=== PATIENT | female | born 1995 ===

== ENCOUNTER 2019-12-06 22:57 | Inpatient (IN) | payer OTHER ==
[2019-12-06] MEDS ORDERED: Nalbuphine 10 MG/1 ML Vial IVPUSH PRN (23:23)
[2019-12-06] MEDS ORDERED: Carboprost Tromethamine 250 MCG/1 ML Amp IM PRN (23:23)
[2019-12-06] MEDS ORDERED: Sodium Chloride 0.9% 10 ML SDV IV PRN (23:23)
[2019-12-06] MEDS ORDERED: Tranexamic Acid 1,000 MG in Sodium Chloride 0.9% 100 ML IV PRN (23:23)
[2019-12-06] MEDS ORDERED: Butorphanol 1 MG/ML SDV IVPUSH PRN (23:23)
[2019-12-06] MEDS ORDERED: Methylergonovine 0.2 MG/1 ML Amp IM PRN (23:23)
[2019-12-06] MEDS ORDERED: Water For Irrigation,Sterile 1,000 ML Container IRR PRN (23:23)
[2019-12-06] MEDS ORDERED: Misoprostol 200 MCG Tab PO PRN (23:23)
[2019-12-06] MEDS ORDERED: Lidocaine 1% 50 ML MDV INJECT PRN (23:23)
[2019-12-06] MEDS ORDERED: Sodium Chloride 0.9% 10 ML Syringe FLUSH PRN (23:23)
[2019-12-06] MEDS ORDERED: Lactated Ringers 1,000 ML IV SCH (23:30)
[2019-12-06] MEDS ORDERED: Oxytocin/0.9 % Sodium Chloride 30 UNIT/500 ML BAG IV SCH (23:30)
[2019-12-07 08:33] LABS: BLOOD UREA NITROGEN,BUN 9 mg/dL (7.0-18.0); CARBON DIOXIDE,CO2 23.4 mmol/L (21.0-32.0); CHLORIDE,CL 103 mmol/L (98-107); GLUCOSE RANDOM 91 mg/dL (74-106); POTASSIUM,K 4.5 mmol/L (3.5-5.1); SODIUM,NA 138 mmol/L (136-145)
[2019-12-07] MEDS ORDERED: Terbutaline 1 MG/ML SDV SUBCUT PRN (11:44)
[2019-12-07] MEDS ORDERED: Oxytocin/0.9 % Sodium Chloride 30 UNIT/500 ML BAG IV SCH (11:45)
--- NOTE | 2019-12-07 12:13 | PCM.PREANE ---
Preanesthetic Assessment - Anesthesia/Transfusion/Family Hx Anesthesia History: No Prior Anesthesia Family History of Anesthesia Reaction: No Transfusion History: No Prior Transfusion(s) - Review of Systems General: No Symptoms Pulmonary: No Symptoms Cardiovascular: No Symptoms Gastrointestinal: No Symptoms Neurological: No Symptoms Other: Reports: None - Physical Assessment NPO Status Date: 12/07/19 NPO Status Time: 11:45 (water, juice) Height: 5 ft 6 in Weight: 108.862 kg ASA Class: 2 Mental Status: Alert & Oriented x3 Airway Class: Mallampati = 1 Dentition: Reports: Normal Dentition ROM/Head Extension: Full Lungs: Clear to Auscultation, Normal Respiratory Effort Cardiovascular: Regular Rate, Regular Rhythm - Lab Values: Laboratory Last Values WBC 12.48 K/uL (4.0-11.0) H 12/06/19 23:37 RBC 4.12 M/uL (4.30-5.90) L 12/06/19 23:37 Hgb 11.9 g/dL (12.0-16.0) L 12/06/19 23:37 Hct 36.2 % (36.0-46.0) 12/06/19 23:37 MCV 87.9 fL (80.0-98.0) 12/06/19 23:37 MCH 28.9 pg (27.0-32.0) 12/06/19 23:37 MCHC 32.9 g/dL (31.0-37.0) 12/06/19 23:37 RDW Std Deviation 45.8 fl (28.0-62.0) 12/06/19 23:37 RDW Coeff of Viet 14 % (11.0-15.0) 12/06/19 23:37 Plt Count 191 K/uL (150-400) 12/06/19 23:37 MPV 11.50 fL (7.40-12.00) 12/06/19 23:37 Nucleated RBC % 0.0 /100WBC 12/06/19 23:37 Nucleated RBCs # 0 K/uL 12/06/19 23:37 Sodium 138 mmol/L (136-145) 12/07/19 08:00 Potassium 4.5 mmol/L (3.5-5.1) 12/07/19 08:00 Chloride 103 mmol/L (98-107) 12/07/19 08:00 Carbon Dioxide 23.4 mmol/L (21.0-32.0) 12/07/19 08:00 BUN 9 mg/dL (7.0-18.0) 12/07/19 08:00 Creatinine 0.8 mg/dL (0.6-1.0) 12/07/19 08:00 Est Cr Clr Drug Dosing 99.76 mL/min 12/07/19 08:00 Estimated GFR (MDRD) > 60.0 ml/min 12/07/19 08:00 Glucose 91 mg/dL (74-106) 12/07/19 08:00 Uric Acid 5.2 mg/dL (2.6-7.2) 12/07/19 08:00 Calcium 8.9 mg/dL (8.5-10.1) 12/07/19 08:00 Total Bilirubin 0.6 mg/dL (0.2-1.0) 12/07/19 08:00 AST 20 IU/L (15-37) 12/07/19 08:00 ALT 19 IU/L (14-63) 12/07/19 08:00 Alkaline Phosphatase 103 U/L (46-116) 12/07/19 08:00 Total Protein 7.0 g/dL (6.4-8.2) 12/07/19 08:00 Albumin 2.8 g/dL (3.4-5.0) L 12/07/19 08:00 Globulin 4.2 g/dL (2.6-4.0) H 12/07/19 08:00 Albumin/Globulin Ratio 0.7 (0.9-1.6) L 12/07/19 08:00 Blood Type AB POSITIVE 12/06/19 23:37 Antibody Screen NEGATIVE 12/06/19 23:37 - Allergies Allergies/Adverse Reactions: Allergies Allergy/AdvReac Type Severity Reaction Status Date / Time No Known Allergies Allergy Verified 08/28/19 16:16 - Acknowledgements Anesthesia Type Planned: Epidural Pt an Appropriate Candidate for the Planned Anesthesia: Yes Alternatives and Risks of Anesthesia Discussed w Pt/Guardian: Yes Pt/Guardian Understands and Agrees with Anesthesia Plan: Yes PreAnesthesia Questionnaire - Past Health History Medical/Surgical History: Denies Medical/Surgical History HEENT History: Reports: Other (See Below) Other HEENT History: wear glasses Genitourinary History: Reports: UTI, Recurrent 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: - Past Surgical History HEENT Surgical History: Reports: None Female Surgical History: Reports: None - SUBSTANCE USE Smoking Status *Q: Never Smoker Tobacco Use Within Last Twelve Months: No Second Hand Smoke Exposure: No Recreational Drug Use History: No - CURRENT (IN HOUSE) MEDS Current Meds: Current Medications Butorphanol Tartrate (Stadol) 1 mg IVPUSH ASDIRECTED PRN PRN Reason: Pain Carboprost Tromethamine (Hemabate Ds) 250 mcg IM ASDIRECTED PRN PRN Reason: Post Hemorrhage Tranexamic Acid 1,000 mg/ (Sodium Chloride) 110 mls @ 660 mls/hr IV ONETIME PRN PRN Reason: Bleeding Lactated Ringer's (Ringers, Lactated) 1,000 mls @ 150 mls/hr IV ASDIRECTED FABRIZIO Oxytocin/Sodium Chloride (Oxytocin 30 Unit/500 Ml-Ns) 30 unit in 500 mls @ 999 mls/hr IV TITRATE FABRIZIO Oxytocin/Sodium Chloride (Oxytocin 30 Unit/500 Ml-Ns) 30 unit in 500 mls @ 2 mls/hr IV TITRATE FABRIZIO; Protocol Lidocaine HCl (Xylocaine 1%) 50 ml INJECT ONETIME PRN PRN Reason: Laceration repair Methylergonovine Maleate (Methergine) 0.2 mg IM ASDIRECTED PRN PRN Reason: Post Hemorrhage Misoprostol (Cytotec) 200 mcg PO ONETIME PRN PRN Reason: Post Hemorrhage Nalbuphine HCl (Nubain) 10 mg IVPUSH ASDIRECTED PRN PRN Reason: Pain (severe 7-10) Sodium Chloride (Saline Flush) 10 ml FLUSH ASDIRECTED PRN PRN Reason: Keep Vein Open Sodium Chloride (Normal Saline) 10 ml IV ASDIRECTED PRN PRN Reason: IV Use Sterile Water (Sterile Water For Irrigation) 1,000 ml IRR ASDIRECTED PRN PRN Reason: delivery Terbutaline Sulfate (Brethine) 0.25 mg SUBCUT ASDIRECTED PRN PRN Reason: Tacysystole Discontinued Medications Fentanyl/Bupivacaine HCl (Rkntxmsw-Jloex-Ef 2 Mcg/Ml-0.125%) Confirm Administered Dose 100 mls @ as directed .ROUTE .STK-MED ONE Stop: 12/07/19 11:50
--- NOTE | 2019-12-07 13:40 | PCM.DEL ---
L & D Note - General Info Date of Service: 12/07/19 Mother's Due Date: 11/27/19 - Delivery Note Labor: Spontaneous, Augmented by ARM, Augmented by Oxytocin Delivery Outcome: Livebirth Delivery Method: Spontaneous Vaginal Delivery-Single Presentation: Left Occiput Anterior (ANNALEE) Nuchal Cord: None Prep: Other Anesthesia Type: Epidural Episiotomy Type: None Laceration: Vaginal Suture type: Vicryl Suture size: 3-0 Placenta: Intact, Spontaneous Cord: 3 Vessels Estimated Blood Loss: 300 Resuscitation Needed: Yes : Bulb Syringe Score 1 min: 8 Score 5 min: 9 Delivery Comments (Free Text/Narrative):: Liveborn female at 1316 - General Info Date of Service: 12/07/19 - Patient Data Weight - Most Recent: 108.862 kg Lab Results Last 24 Hours: Laboratory Results - last 24 hr 12/06/19 12/06/19 12/07/19 Range/Units 23:37 23:37 08:00 WBC 12.48 H (4.0-11.0) K/uL RBC 4.12 L (4.30-5.90) M/uL Hgb 11.9 L (12.0-16.0) g/dL Hct 36.2 (36.0-46.0) % MCV 87.9 (80.0-98.0) fL MCH 28.9 (27.0-32.0) pg MCHC 32.9 (31.0-37.0) g/dL RDW Std Deviation 45.8 (28.0-62.0) fl RDW Coeff of Viet 14 (11.0-15.0) % Plt Count 191 (150-400) K/uL MPV 11.50 (7.40-12.00) fL Nucleated RBC % 0.0 /100WBC Nucleated RBCs # 0 K/uL Sodium 138 (136-145) mmol/L Potassium 4.5 (3.5-5.1) mmol/L Chloride 103 (98-107) mmol/L Carbon Dioxide 23.4 (21.0-32.0) mmol/L BUN 9 (7.0-18.0) mg/dL Creatinine 0.8 (0.6-1.0) mg/dL Est Cr Clr Drug Dosing 99.76 mL/min Estimated GFR (MDRD) > 60.0 ml/min Glucose 91 (74-106) mg/dL Uric Acid 5.2 (2.6-7.2) mg/dL Calcium 8.9 (8.5-10.1) mg/dL Total Bilirubin 0.6 (0.2-1.0) mg/dL AST 20 (15-37) IU/L ALT 19 (14-63) IU/L Alkaline Phosphatase 103 (46-116) U/L Total Protein 7.0 (6.4-8.2) g/dL Albumin 2.8 L (3.4-5.0) g/dL Globulin 4.2 H (2.6-4.0) g/dL Albumin/Globulin Ratio 0.7 L (0.9-1.6) Blood Type AB POSITIVE Antibody Screen NEGATIVE Med Orders - Current: Current Medications Butorphanol Tartrate (Stadol) 1 mg IVPUSH ASDIRECTED PRN PRN Reason: Pain Carboprost Tromethamine (Hemabate Ds) 250 mcg IM ASDIRECTED PRN PRN Reason: Post Hemorrhage Tranexamic Acid 1,000 mg/ (Sodium Chloride) 110 mls @ 660 mls/hr IV ONETIME PRN PRN Reason: Bleeding Lactated Ringer's (Ringers, Lactated) 1,000 mls @ 150 mls/hr IV ASDIRECTED FABRIZIO Oxytocin/Sodium Chloride (Oxytocin 30 Unit/500 Ml-Ns) 30 unit in 500 mls @ 999 mls/hr IV TITRATE FABRIZIO Oxytocin/Sodium Chloride (Oxytocin 30 Unit/500 Ml-Ns) 30 unit in 500 mls @ 2 mls/hr IV TITRATE FABRIZIO; Protocol Last Titration: 12/07/19 12:45 Dose: 6 munits/min, 6 mls/hr Lidocaine HCl (Xylocaine 1%) 50 ml INJECT ONETIME PRN PRN Reason: Laceration repair Methylergonovine Maleate (Methergine) 0.2 mg IM ASDIRECTED PRN PRN Reason: Post Hemorrhage Misoprostol (Cytotec) 200 mcg PO ONETIME PRN PRN Reason: Post Hemorrhage Nalbuphine HCl (Nubain) 10 mg IVPUSH ASDIRECTED PRN PRN Reason: Pain (severe 7-10) Sodium Chloride (Saline Flush) 10 ml FLUSH ASDIRECTED PRN PRN Reason: Keep Vein Open Sodium Chloride (Normal Saline) 10 ml IV ASDIRECTED PRN PRN Reason: IV Use Sterile Water (Sterile Water For Irrigation) 1,000 ml IRR ASDIRECTED PRN PRN Reason: delivery Terbutaline Sulfate (Brethine) 0.25 mg SUBCUT ASDIRECTED PRN PRN Reason: Tacysystole Discontinued Medications Fentanyl/Bupivacaine HCl (Bsilaqqk-Olfyf-Na 2 Mcg/Ml-0.125%) Confirm Administered Dose 100 mls @ as directed .ROUTE .STK-MED ONE Stop: 12/07/19 11:50 - Problem List & Annotations (1) Vaginal delivery SNOMED Code(s): 578791167 Code(s): O80 - ENCOUNTER FOR FULL-TERM UNCOMPLICATED DELIVERY Status: Acute Current Visit: Yes - Problem List Review Problem List Initiated/Reviewed/Updated: Yes - My Orders Last 24 Hours: My Active Orders 12/07/19 11:44 Bedrest Bathroom Privileges [RC] ASDIRECTED Communication Order [RC] ASDIRECTED Communication Order [RC] ASDIRECTED Notify Provider [RC] PRN Notify Provider [RC] STAT Oxygen Therapy [RC] ASDIRECTED Vaginal Exam [RC] PRN Vital Signs [RC] PER UNIT ROUTINE Terbutaline [Brethine] 0.25 mg SUBCUT ASDIRECTED PRN 12/07/19 11:45 Oxytocin/0.9 % Sodium Chloride [Oxytocin 30 Unit/500 ML-NS] 30 unit in 500 ml IV TITRATE Medication Administration Instruction [OM.PC] Q3H
[2019-12-07] MEDS ORDERED: Witch Hazel Medicated Pads 40/Jar TOP PRN (13:41)
[2019-12-07] MEDS ORDERED: Ibuprofen 400 MG Tab PO PRN (13:41)
[2019-12-07] MEDS ORDERED: Acetaminophen 500 MG Tab PO PRN (13:41)
[2019-12-07] MEDS ORDERED: Lanolin 100% Cream 7 GM Tube TOP PRN (13:41)
[2019-12-07] MEDS ORDERED: oxyCODONE 5 MG Tab PO PRN (13:41)
[2019-12-07] MEDS ORDERED: Bisacodyl 10 MG Supp RECTAL PRN (13:41)
[2019-12-07] MEDS ORDERED: Methylergonovine 0.2 MG/1 ML Amp IM PRN (13:41)
[2019-12-07] MEDS ORDERED: Tranexamic Acid 1,000 MG in Sodium Chloride 0.9% 100 ML IV PRN (13:41)
[2019-12-07] MEDS ORDERED: Misoprostol 200 MCG Tab RECTAL PRN (13:41)
[2019-12-07] MEDS ORDERED: Benzocaine/Menthol 20%-0.5% Spray 78 GM Cannister TOP PRN (13:41)
--- NOTE | 2019-12-07 15:45 | PCM.POSTAN ---
POST ANESTHESIA ASSESSMENT - MENTAL STATUS Mental Status: Alert, Oriented - RESPIRATORY Respiratory Status: Respiratory Rate WNL, Airway Patent, O2 Saturation Stable - CARDIOVASCULAR CV Status: Pulse Rate WNL, Blood Pressure Stable - GASTROINTESTINAL GI Status: No Symptoms - PAIN Pain Score: 0 - POST OP HYDRATION Hydration Status: Adequate & Stable
[2019-12-07] MEDS: Ibuprofen 800 MG Tab PO PRN (16:43)
[2019-12-07] MEDS: Docusate Sodium 100 MG Cap PO PRN (16:44)
--- NOTE | 2019-12-07 16:52 | OR ---
SURGEON: Jessica Whyte M.D. DATE OF PROCEDURE: 12/07/2019 PREOPERATIVE DIAGNOSES: A 37-2/7 weeks' intrauterine , active spontaneous labor, group B strep negative. POSTOPERATIVE DIAGNOSES: A 37-2/7 weeks' intrauterine , active spontaneous labor, group B strep negative. PROCEDURES: Pitocin augmentation of labor, artificial rupture of membranes, term spontaneous vaginal delivery, repair of vaginal laceration. PRIMARY SURGEON: Jessica Whyte MD. ANESTHESIA: Epidural. ESTIMATED BLOOD LOSS: Less than 300 mL. FINDINGS: Liveborn female. score of 8 and 9. Weight is pending. Placenta spontaneous, Schultze intact, with 3 vessels. Very small vaginal laceration with suture placed for hemostasis. COMPLICATIONS: None known. DISPOSITION: Stable in recovery. BRIEF HISTORY: This is a 24-year-old female. She is G2, P 1-0-0-1. She presents at 37-1/7 weeks' gestation in active spontaneous labor, progressing from 4 to 6 cm over observation time, this was in the evening. By morning, she was still 6 cm. Artificial rupture of membranes was performed with clear fluid noted. Two hours later, she was unchanged, and she was trying to labor without epidural. Therefore, we did give her another 2 hours for cervical change. However, this did not occur. Therefore, Pitocin was initiated. Soon thereafter, she requested an epidural, which provided excellent pain control, and within 2 hours, she was complete. DESCRIPTION OF PROCEDURE: With the patient in dorsal lithotomy position, the patient pushed twice to a 5+ station at which time the head was delivered spontaneously and atraumatically over the perineum with support with subsequent delivery of the infant's shoulders and body without any difficulty. The was bulb suctioned by nose and mouth and the cord was clamped x2 and cut after it had ceased to pulsate. The infant was handed to the mother in the presence of nurse attending delivery. The infant was a liveborn female. score of 8 and 9. Weight is pending at the time of dictation. Cord blood was collected for cord ABGs as well as routine cord blood sampling. Pitocin was initiated after delivery of the to assist with delivery of the placenta, which was delivered spontaneously, Schultze intact, with 3 vessels. Upon inspection of the pelvis and perineum, there were no periurethral, cervical, rectal, or perineal lacerations. There was a small vaginal laceration at 6 o'clock, which was repaired with a single [id number] suture of 3-0 Polysorb. Final sponge, needle, and instrument counts were correct. There were no known complications. Mother and baby are in LDR in good condition. JANIA / DEBBIE /[id number]
[2019-12-07] MEDS: Acetaminophen 500 MG Tab PO PRN (19:52)
[2019-12-08] MEDS: Acetaminophen 500 MG Tab PO PRN (04:04)
--- NOTE | 2019-12-08 06:59 | PCM48HPAN ---
Post Anesthesia Note - EVALUATION WITHIN 48HRS OF ANESTHETIC Vital Signs in Normal Range: Yes Patient Participated in Evaluation: Yes Respiratory Function Stable: Yes Airway Patent: Yes Cardiovascular Function Stable: Yes Hydration Status Stable: Yes Pain Control Satisfactory: Yes Nausea and Vomiting Control Satisfactory: Yes Mental Status Recovered: Yes Vital Signs: Last Vital Signs Temp 36.5 C 12/08/19 04:10 Pulse 86 12/08/19 04:10 Resp 18 12/08/19 04:10 BP 136/74 12/08/19 05:20 Pulse Ox 97 12/08/19 04:10
[2019-12-08] MEDS: Ibuprofen 800 MG Tab PO PRN (09:09)
[2019-12-08] MEDS: Docusate Sodium 100 MG Cap PO PRN (09:09)
--- NOTE | 2019-12-08 12:35 | PCM.PNPP ---
- General Info Date of Service: 12/08/19 Functional Status: Reports: Pain Controlled, Tolerating Diet, Ambulating, Urinating - Review of Systems General: Reports: Fever, Weakness HEENT: Reports: No Symptoms Pulmonary: Reports: No Symptoms Cardiovascular: Reports: No Symptoms Gastrointestinal: Reports: No Symptoms Genitourinary: Reports: No Symptoms Musculoskeletal: Reports: No Symptoms Skin: Reports: No Symptoms Neurological: Reports: No Symptoms Psychiatric: Reports: No Symptoms - Patient Data Vital Signs - Most Recent: Last Vital Signs Temp 36.6 C 12/08/19 09:00 Pulse 84 12/08/19 09:00 Resp 16 12/08/19 09:00 BP 132/84 12/08/19 09:00 Pulse Ox 97 12/08/19 09:00 Weight - Most Recent: 108.862 kg Lab Results - Last 24 Hours: Laboratory Results - last 24 hr 12/07/19 12/08/19 Range/Units 13:16 05:30 Hgb 10.6 L (12.0-16.0) g/dL Hct 32.3 L (36.0-46.0) % Cord ABG pH 7.201 (7.18-7.38) Cord ABG Base Excess -6 (-10--2) Cord VBG pH 7.292 (7.25-7.45) Cord VBG Base Excess -5 (-10--2) Med Orders - Current: Current Medications Acetaminophen (Tylenol Extra Strength) 500 mg PO Q4H PRN PRN Reason: Pain Acetaminophen (Tylenol Extra Strength) 1,000 mg PO Q4H PRN PRN Reason: Pain Last Admin: 12/08/19 04:04 Dose: 1,000 mg Benzocaine/Menthol (Dermoplast Pain Relief 20%-0.5% [place]) 78 gm TOP ASDIRECTED PRN PRN Reason: Perineal Comfort Measure Last Admin: 12/07/19 16:42 Dose: 1 spray Bisacodyl (Dulcolax) 10 mg RECTAL ONETIME PRN PRN Reason: Constipation Docusate Sodium (Colace) 100 mg PO BID PRN PRN Reason: Constipation Last Admin: 12/08/19 09:09 Dose: 100 mg Emollient Ointment (Lansinoh Hpa) 0 gm TOP ASDIRECTED PRN PRN Reason: Sore Nipples Last Admin: 12/07/19 16:43 Dose: 1 applic Tranexamic Acid 1,000 mg/ (Sodium Chloride) 110 mls @ 660 mls/hr IV ONETIME PRN PRN Reason: Bleeding Ibuprofen (Motrin) 400 mg PO Q4H PRN PRN Reason: Pain Ibuprofen (Motrin) 800 mg PO Q6H PRN PRN Reason: Pain Last Admin: 12/08/19 09:09 Dose: 800 mg Methylergonovine Maleate (Methergine) 0.2 mg IM ONETIME PRN PRN Reason: Excessive Vaginal Bleeding Misoprostol (Cytotec) 1,000 mcg RECTAL ONETIME PRN PRN Reason: excessive vaginal bleeding Oxycodone HCl (Oxycodone) 5 mg PO Q2H PRN PRN Reason: Pain Witch Gunjan (Tucks) 1 pad TOP ASDIRECTED PRN PRN Reason: comfort care Last Admin: 12/07/19 16:42 Dose: 1 disk Discontinued Medications Butorphanol Tartrate (Stadol) 1 mg IVPUSH ASDIRECTED PRN PRN Reason: Pain Carboprost Tromethamine (Hemabate Ds) 250 mcg IM ASDIRECTED PRN PRN Reason: Post Hemorrhage Tranexamic Acid 1,000 mg/ (Sodium Chloride) 110 mls @ 660 mls/hr IV ONETIME PRN PRN Reason: Bleeding Lactated Ringer's (Ringers, Lactated) 1,000 mls @ 150 mls/hr IV ASDIRECTED FABRIZIO Oxytocin/Sodium Chloride (Oxytocin 30 Unit/500 Ml-Ns) 30 unit in 500 mls @ 999 mls/hr IV TITRATE FABRIZIO Oxytocin/Sodium Chloride (Oxytocin 30 Unit/500 Ml-Ns) 30 unit in 500 mls @ 2 mls/hr IV TITRATE FABRIZIO; Protocol Last Titration: 12/07/19 12:45 Dose: 6 munits/min, 6 mls/hr Fentanyl/Bupivacaine HCl (Kmapgcrf-Eohja-Pe 2 Mcg/Ml-0.125%) Confirm Administered Dose 100 mls @ as directed .ROUTE .STK-MED ONE Stop: 12/07/19 11:50 Lidocaine HCl (Xylocaine 1%) 50 ml INJECT ONETIME PRN PRN Reason: Laceration repair Methylergonovine Maleate (Methergine) 0.2 mg IM ASDIRECTED PRN PRN Reason: Post Hemorrhage Misoprostol (Cytotec) 200 mcg PO ONETIME PRN PRN Reason: Post Hemorrhage Nalbuphine HCl (Nubain) 10 mg IVPUSH ASDIRECTED PRN PRN Reason: Pain (severe 7-10) Sodium Chloride (Saline Flush) 10 ml FLUSH ASDIRECTED PRN PRN Reason: Keep Vein Open Sodium Chloride (Normal Saline) 10 ml IV ASDIRECTED PRN PRN Reason: IV Use Sterile Water (Sterile Water For Irrigation) 1,000 ml IRR ASDIRECTED PRN PRN Reason: delivery Terbutaline Sulfate (Brethine) 0.25 mg SUBCUT ASDIRECTED PRN PRN Reason: Tacysystole - Infant Interaction Infant Disposition, : in Room with Family Infant Interaction: Holding Feeding: Attempted ; Nursed Fair/Poor Support Person: - Recovery Exam Fundal Tone: Firm Fundal Level: At Umbilicus Fundal Placement: Midline Lochia Amount: Small Lochia Color: Rubra/Red Perineum Description: Intact, Minimal Bruising/Swelling Episiotomy/Laceration: Approximated Bladder Status: Nonpalpable - Exam General: Alert, Oriented Neck: Supple Lungs: Normal Respiratory Effort GI/Abdominal Exam: Soft, Non-Tender Extremities: Normal Inspection, Non-Tender, No Pedal Edema Neurological: No New Focal Deficit - Problem List & Annotations (1) Vaginal delivery SNOMED Code(s): 562259298 Code(s): O80 - ENCOUNTER FOR FULL-TERM UNCOMPLICATED DELIVERY Status: Acute Current Visit: Yes - Problem List Review Problem List Initiated/Reviewed/Updated: Yes - My Orders Last 24 Hours: My Active Orders 12/07/19 11:44 Bedrest Bathroom Privileges [RC] ASDIRECTED Communication Order [RC] ASDIRECTED Communication Order [RC] ASDIRECTED Notify Provider [RC] PRN Notify Provider [RC] STAT Oxygen Therapy [RC] ASDIRECTED Vaginal Exam [RC] PRN Vital Signs [RC] PER UNIT ROUTINE 12/07/19 13:41 Acetaminophen [Tylenol Extra Strength] 1,000 mg PO Q4H PRN Acetaminophen [Tylenol Extra Strength] 500 mg PO Q4H PRN Benzocaine/Menthol [Dermoplast Pain Relief 20%-0.5% [place]] 78 gm TOP ASDIRECTED PRN Docusate Sodium [Colace] 100 mg PO BID PRN Ibuprofen [Motrin] 400 mg PO Q4H PRN Ibuprofen [Motrin] 800 mg PO Q6H PRN Lanolin [Lansinoh HPA] See Dose Instructions TOP ASDIRECTED PRN Methylergonovine [Methergine] 0.2 mg IM ONETIME PRN Tranexamic Acid [Cyklokapron] 1,000 mg Sodium Chloride 0.9% [Normal Saline] 100 ml IV ONETIME bisacodyL [Dulcolax] 10 mg RECTAL ONETIME PRN miSOPROStoL [Cytotec] 1,000 mcg RECTAL ONETIME PRN oxyCODONE 5 mg PO Q2H PRN witch Gunjan [Tucks] 1 pad TOP ASDIRECTED PRN Resuscitation Status Routine 12/07/19 13:42 Patient Status [ADT] Routine May Shower [RC] ASDIRECTED Up ad Constanza [RC] ASDIRECTED Vital Signs [RC] PER UNIT ROUTINE Assess Lochia [WOMSER] Per Unit Routine Assess Uterine Involution [WOMSER] Per Unit Routine Perineal Care [OM.PC] Per Unit Routine Peripheral IV Discontinue [OM.PC] Routine 12/07/19 Dinner Regular Diet [DIET] - Assessment Assessment:: PPD#1 stable minimal lochia, minimal pain, would like to go home today. - Plan Plan:: Dismiss to home today discharge instructions reviewed.
== END 2019-12-08 15:00 | disposition home or self-care (01) | DRG 807 ==
LOC: MW.OBCHECK 22:57 → MW.OB 22:57 → MW.OBCHECK 12-07 10:59 → MW.OB 12-07 11:05 → OBSVTOIN 12-07 13:16 → MW.OB 12-07 18:21
PROVIDERS: ADMIT Obstetrics & Gynecology; ATTEND Obstetrics & Gynecology
PROC: 10E0XZZ Delivery of Products of Conception, External Approach (ICD-10-PCS; principal; 2019-12-07)
PROC: 0UQGXZZ Repair Vagina, External Approach (ICD-10-PCS; 2019-12-07)
PROC: 10907ZC Drainage of Amniotic Fluid, Therapeutic from Products of Conception, Via Natural or Artificial Opening (ICD-10-PCS; 2019-12-07)
PROC: 3E0R3BZ Introduction of Anesthetic Agent into Spinal Canal, Percutaneous Approach (ICD-10-PCS; 2019-12-07)
DX: O71.4 Obstetric high vaginal laceration alone (principal); Z37.0 Single live birth; Z3A.37 37 weeks gestation of pregnancy
CPT/HCPCS: 36415; 59025; 59409; 80053; 82803; 84550; 85014; 85018; 85027; 86592; 86593; 86850; 86900; 86901; A9270-GY; J2590

== ENCOUNTER 2023-03-20 12:03 | Emergency (ER) | payer SELFPAY ==
[2023-03-20] MEDS ORDERED: Octyl 2-Cyanoacrylate 1 g/1 mL 1 APPLIC PEN TOP ONE (14:46)
== END 2023-03-20 15:14 | disposition home or self-care (01) ==
LOC: MW.ED 12:03
DX: T81.31XA Disruption of external operation (surgical) wound, not elsewhere classified, initial encounter (principal)
CPT/HCPCS: 99282; A9270